=== PATIENT | male | born 1955 | race Caucasian/White ===

== ENCOUNTER 2020-02-16 15:24 | Emergency (ER) | payer OTHER ==
[~2020-02-16] VITALS: Ht 170.2 cm; Wt 56.7 kg
[2020-02-16 16:06] LABS: BASOPHILS ABSOLUTE AUTO 0.06 K/mm3 (0.00-0.23); BASOPHILS PERCENT AUTO 1 % (0-2); EOSINOPHILS ABSOLUTE AUTO 0.46 K/mm3 (0.00-0.68); EOSINOPHILS PERCENT AUTO 7 % (0-6); Hematocrit 37.6 % (37.0-53.0); Hemoglobin 12.3 g/dL (13.5-17.5); IMMATURE GRAN ABSOLUTE AUTO 0.02 K/mm3 (0.00-0.10); IMMATURE GRAN PERCENT AUTO 0 % (0-1); LYMPHOCYTES ABSOLUTE AUTO 2.13 K/mm3 (0.84-5.20); LYMPHOCYTES PERCENT AUTO 30 % (21-46); MONOCYTES ABSOLUTE AUTO 0.69 K/mm3 (0.16-1.47); MONOCYTES PERCENT AUTO 10 % (4-13); Mean Corpuscular HGB 32.9 pg (26.0-34.0); Mean Corpuscular HGB Conc 32.7 g/dL (31.5-36.5); Mean Corpuscular Volume 101 fL (80-100); Mean Platelet Volume 10.8 fL (9.1-12.4); NEUTROPHILS ABSOLUTE AUTO 3.73 K/mm3 (1.96-9.15); NEUTROPHILS PERCENT AUTO 53 % (41-73); Platelet Count 245 K/mm3 (150-400); RDW Coefficient Variation 13.1 % (11.7-14.2); RDW Standard Deviation 48.4 fL (35.1-46.3); Red Blood Cell Count 3.74 M/mm3 (4.30-5.90); White Blood Cell Count 7.09 K/mm3 (4.00-11.30)
[2020-02-16 16:28] LABS: Alanine Aminotransfer (ALT/SGP 22 U/L (12-78); Albumin, Blood 3.4 g/dL (3.4-5.0); Alk Phos 112 U/L (50-136); Anion Gap 6 mmol/L (6-16); Aspartate Aminotrans (AST/SGOT 27 U/L (12-37); Bilirubin, Total 0.4 mg/dL (0.1-1.0); Blood Urea Nitrogen 8 mg/dL (8-24); Bun/Creatinine Ratio 7.4 (12.0-20.0); CO2, Blood 27 mmol/L (21-32); Calcium, Blood 8.9 mg/dL (8.5-10.1); Chloride, Blood 106 mmol/L (98-108); Creatinine, Blood 1.08 mg/dL (0.60-1.20); Globulin, Blood 3.5 g/dL (2.2-4.0); Glomerular Filtration Rate >60 (60-); Glucose, Blood 93 mg/dL (70-99); Potassium, Blood 3.9 mmol/L (3.5-5.5); Sodium, Blood 139 mmol/L (136-145); Total Protein, Blood 6.9 g/dL (6.4-8.2); Troponin I <0.015 ng/mL (0.000-0.040)
[2020-02-16] MEDS ORDERED: DELTASONE20 MG PO (18:32)
[2020-02-16] MEDS ORDERED: ATOR10 PO (18:46)
[2020-02-16] MEDS ORDERED: ALLO100 PO (18:46)
[2020-02-16] MEDS ORDERED: ALBU90OI61 PO (18:46)
[2020-02-16] MEDS ORDERED: Aspir 8181 MG PO (18:46)
[2020-02-16] MEDS ORDERED: BUDESONIDE-FO10.2 G2 PO (18:47)
[2020-02-16] MEDS ORDERED: GABA300 PO (18:47)
[2020-02-16] MEDS ORDERED: METO25 PO (18:48)
[2020-02-16] MEDS ORDERED: LOPE2C PO (18:48)
[2020-02-16] MEDS ORDERED: MELO7.5 PO (18:48)
[2020-02-16] MEDS ORDERED: ROXICODONE15 MG PO (18:50)
[2020-02-16] MEDS ORDERED: TAMS.4ER PO (18:52)
[2020-02-16] MEDS ORDERED: Imitrex50 MG PO (18:52)
[2020-02-16] MEDS ORDERED: TIZA4 PO (18:53)
[2020-02-16] MEDS ORDERED: TRAZ100 PO ×2 (18:54)
[2020-02-27] MEDS ORDERED: GABA100 PO (13:09)
[2020-02-27] MEDS ORDERED: OXYC5 PO (13:10)
[2020-02-27] MEDS ORDERED: ALBU90OI INH (13:11)
[2020-02-27] MEDS ORDERED: Methocarbamol500 MG PO (13:12)
[2020-02-27] MEDS ORDERED: ASPERCREME1 EACH TOP (13:13)
== END 2020-02-16 18:45 | disposition home or self-care (01) ==
LOC: ER 15:24
PROVIDERS: Physician Assistant
DX: J43.9 Emphysema, unspecified (principal)
CPT/HCPCS: 36415; 71045; 80053; 83880; 84484; 85025; 93005; 93010; 94640; 99285-25; J7512

== ENCOUNTER 2020-12-09 04:08 | Emergency (ER) | payer OTHER ==
[~2020-12-09] VITALS: Ht 170.2 cm; Wt 52.2 kg
[~2020-12-09 04:08] MED LIST: ALBU90OI INH; ALBU90OI61 PO; ALLO100 PO; ASPERCREME1 EACH TOP; ATOR10 PO; Aspir 8181 MG PO; BUDESONIDE-FO10.2 G2 PO; DELTASONE20 MG PO; GABA100 PO; GABA300 PO; Imitrex50 MG PO; LOPE2C PO; MELO7.5 PO; METO25 PO; Methocarbamol500 MG PO; OXYC5 PO; ROXICODONE15 MG PO; TAMS.4ER PO; TIZA4 PO; TRAZ100 PO
[2020-12-09] MEDS ORDERED: CYCLOBENZAPRINE5 MG PO (04:46)
[2020-12-09] MEDS ORDERED: DOXE10 PO (04:46)
[2020-12-09] MEDS ORDERED: FLUO10 PO (04:47)
[2020-12-09] MEDS ORDERED: ONE-A-DAY VIT200 MC1 PO (04:47)
[2020-12-09 05:36] LABS: BASOPHILS ABSOLUTE AUTO 0.04 K/mm3 (0.00-0.23); BASOPHILS PERCENT AUTO 0 % (0-2); EOSINOPHILS ABSOLUTE AUTO 0.07 K/mm3 (0.00-0.68); EOSINOPHILS PERCENT AUTO 1 % (0-6); Hemoglobin 13.3 g/dL (13.5-17.5); IMMATURE GRAN ABSOLUTE AUTO 0.05 K/mm3 (0.00-0.10); IMMATURE GRAN PERCENT AUTO 0 % (0-1); LYMPHOCYTES ABSOLUTE AUTO 0.63 K/mm3 (0.84-5.20); LYMPHOCYTES PERCENT AUTO 6 % (21-46); MONOCYTES ABSOLUTE AUTO 0.68 K/mm3 (0.16-1.47); MONOCYTES PERCENT AUTO 6 % (4-13); Mean Corpuscular HGB 34.1 pg (26.0-34.0); Mean Corpuscular HGB Conc 34.1 g/dL (31.5-36.5); Mean Corpuscular Volume 100 fL (80-100); Mean Platelet Volume 10.9 fL (9.1-12.4); NEUTROPHILS ABSOLUTE AUTO 9.85 K/mm3 (1.96-9.15); NEUTROPHILS PERCENT AUTO 87 % (41-73); Platelet Count 241 K/mm3 (150-400); RDW Coefficient Variation 13.7 % (11.7-14.2); RDW Standard Deviation 49.7 fL (35.1-46.3); White Blood Cell Count 11.32 K/mm3 (4.00-11.30)
[2020-12-09 05:59] LABS: Troponin I <0.015 ng/mL (0.000-0.040)
[2020-12-09 06:01] LABS: Anion Gap 6 mmol/L (6-16); Blood Urea Nitrogen 9 mg/dL (8-24); CO2, Blood 28 mmol/L (21-32); Chloride, Blood 99 mmol/L (98-108); Glucose, Blood 129 mg/dL (70-99); Potassium, Blood 4.8 mmol/L (3.5-5.5); Sodium, Blood 133 mmol/L (136-145)
[2020-12-09 06:02] LABS: Alanine Aminotransfer (ALT/SGP 270 U/L (12-78); Albumin, Blood 2.9 g/dL (3.4-5.0); Albumin/Globulin Ratio 0.8 (0.8-1.8); Alk Phos 1836 U/L (50-136); Aspartate Aminotrans (AST/SGOT 682 U/L (12-37); Bilirubin, Total 2.3 mg/dL (0.1-1.0); Bun/Creatinine Ratio 8.8 (12.0-20.0); Calcium, Blood 8.7 mg/dL (8.5-10.1); Creatinine, Blood 1.02 mg/dL (0.60-1.20); Globulin, Blood 3.8 g/dL (2.2-4.0); Glomerular Filtration Rate >60 (60-); Total Protein, Blood 6.7 g/dL (6.4-8.2)
[2020-12-09] MEDS ORDERED: TRAM50 PO (11:54)
[2020-12-09 15:56] LABS: SARS-Cov-2 (COVID-19) PCR, MMC NEGATIVE (NEGATIVE)
== END 2020-12-09 16:36 | disposition short-term general hospital (02) ==
LOC: ER 04:08 → SURS 12:19 → ER 12:19
PROVIDERS: Emergency Medicine; Student in an Organized Health Care Education/Training Program
DX: K81.0 Acute cholecystitis (principal); J44.9 Chronic obstructive pulmonary disease, unspecified; E78.5 Hyperlipidemia, unspecified; I10 Essential (primary) hypertension; Z88.8 Allergy status to other drugs, medicaments and biological substances; Z79.82 Long term (current) use of aspirin; Z79.899 Other long term (current) drug therapy; Z20.822 Contact with and (suspected) exposure to COVID-19
CPT/HCPCS: 36415; 74181; 76705; 80053; 83690; 84484; 85025; 93005; 93010; 96365; 96366; 96375; 99285-25; A9270; J2270; J2405; J2543; J7030; U0004

== ENCOUNTER 2021-01-03 16:57 | Observation (INO) | payer OTHER ==
[~2021-01-03] VITALS: Ht 170.2 cm; Wt 50.1 kg
[~2021-01-03 16:57] MED LIST changes: +CYCLOBENZAPRINE5 MG PO; +DOXE10 PO; +FLUO10 PO; +ONE-A-DAY VIT200 MC1 PO; +TRAM50 PO
[2021-01-03 17:35] LABS: BASOPHILS ABSOLUTE AUTO 0.06 K/mm3 (0.00-0.23); BASOPHILS PERCENT AUTO 1 % (0-2); EOSINOPHILS ABSOLUTE AUTO 0.44 K/mm3 (0.00-0.68); EOSINOPHILS PERCENT AUTO 6 % (0-6); Hematocrit 33.3 % (37.0-53.0); IMMATURE GRAN ABSOLUTE AUTO 0.01 K/mm3 (0.00-0.10); IMMATURE GRAN PERCENT AUTO 0 % (0-1); LYMPHOCYTES ABSOLUTE AUTO 3.08 K/mm3 (0.84-5.20); LYMPHOCYTES PERCENT AUTO 45 % (21-46); MONOCYTES PERCENT AUTO 9 % (4-13); Mean Corpuscular HGB 33.1 pg (26.0-34.0); Mean Corpuscular Volume 100 fL (80-100); Mean Platelet Volume 11.2 fL (9.1-12.4); NEUTROPHILS PERCENT AUTO 39 % (41-73); Platelet Count 205 K/mm3 (150-400); RDW Coefficient Variation 13.1 % (11.7-14.2); Red Blood Cell Count 3.32 M/mm3 (4.30-5.90); White Blood Cell Count 6.89 K/mm3 (4.00-11.30)
[2021-01-03] MEDS ORDERED: TAMSULOSIN HCL0.4 M1 PO (17:54)
[2021-01-03 17:55] LABS: Albumin, Blood 2.7 g/dL (3.4-5.0); Albumin/Globulin Ratio 0.8 (0.8-1.8); Bilirubin, Total 0.4 mg/dL (0.1-1.0); Bun/Creatinine Ratio 11.3 (12.0-20.0); Calcium, Blood 8.2 mg/dL (8.5-10.1); Creatinine, Blood 1.33 mg/dL (0.60-1.20); Globulin, Blood 3.5 g/dL (2.2-4.0); Potassium, Blood 4.3 mmol/L (3.5-5.5); Total Protein, Blood 6.2 g/dL (6.4-8.2)
[2021-01-03] MEDS ORDERED: FOLI1 PO (17:55)
[2021-01-03] MEDS ORDERED: OXYC5 PO (17:55)
[2021-01-03 18:01] LABS: Magnesium, Blood 2.1 mg/dL (1.6-2.4); Troponin I <0.015 ng/mL (0.000-0.040)
[2021-01-03 18:06] LABS: Base Excess Venous -1.7 mmol/L; Bicarbonate Venous 23.1 mmol/L (24.0-30.0); PCO2 Venous 40.6 mmHg (38-42); PO2 Venous 154 mmHg (38-42); pH Blood Venous 7.37 (7.34-7.37)
[2021-01-03 20:59] LABS: Source, Urine Catheter
[2021-01-03 21:01] LABS: Bilirubin, Urine Neg (Neg); Blood, Urine Neg (Neg); Glucose Qualitative, Urine Neg (Neg); Ketones, Urine Neg (Neg); Leukocyte Esterase, Urine Neg (Neg); Nitrite, Urine Neg (Neg); Protein, Urine Neg (Neg); Urobilinogen, Urine NORM (Normal)
[2021-01-03 21:09] LABS: Appearance, Urine Clear (Clear); Color, Urine Yellow (P-Yellow)
[2021-01-03 21:12] LABS: U Amphetamine Screen Not Detected; U Barbituate Screen Not Detected; U Methamphetamine Screen Not Detected; U Oxycodone Screen DETECTED
[2021-01-03 21:13] LABS: U Benzodiazapine Screen Not Detected; U Buprenorphine Screen Not Detected; U Cannabinoids Screen Not Detected; U Cocaine Screen Not Detected; U Methadone Screen Not Detected; U Opiates Screen Not Detected; U Phencyclidine Screen Not Detected; U Propoxyphene Screen Not Detected
[2021-01-03] MEDS ORDERED: SUMA25 PO (21:47)
--- NOTE | 2021-01-03 21:50 | NUR ---
ADMISSION PT ADMITTED TO THE FLOOR FROM THE ER. HE IS AWAKE ALERT & ORIENTED X2-3. PT IS CALM & COOPERATIVE AT THIS TIME. HE STATES UNDERSTANDING FOR ADMISSION & SAFETY. LR STARTED PER EMAR @ 100 ML/HR, LACTULOSE & LOVENOX INJECTION GIVEN, NICOTINE PATCH PLACED. PT REFUSED HIS FLOMAX, HE STATES HE HAS NO PROBLEMS WITH URINATION OR HIS PROSTATE. CHARGE NURSE NOTIFIED. PT ORIENTED TO ROOM/CALL LIGHT. BED ALARM PLACED FOR SAFETY.
--- NOTE | 2021-01-04 03:48 | NUR ---
SHIFT SUMMARY PT CONTINUES TO BE ALERT, CALM & COOPERATIVE. BED ALARM REMAINS IN PLACE FOR SAFETY. PT HAS USED CALL LIGHT FOR ASSISTANCE PRN THROUGH THE NIGHT. PT HAS BEEN INCONTINENT OF URINE & REFUSES TO WEAR ATTENDS FOR PROTECTION. HE HAS HAD MULTIPLE STOOLS. LR INFUSING @ 100 ML/HR PER ORDERED. PT C/O CHRONIC BACK PAIN BUT HAS APPEARED TO REST WELL IN BETWEEN BATHROOM USES. VSS, SPO2 >95% ON RA. WCTM AT THIS & REPORT TO DAY SHIFT RN.
[2021-01-04 04:23] LABS: BASOPHILS ABSOLUTE AUTO 0.06 K/mm3 (0.00-0.23); BASOPHILS PERCENT AUTO 1 % (0-2); EOSINOPHILS ABSOLUTE AUTO 0.26 K/mm3 (0.00-0.68); EOSINOPHILS PERCENT AUTO 4 % (0-6); Hematocrit 33.2 % (37.0-53.0); IMMATURE GRAN ABSOLUTE AUTO 0.02 K/mm3 (0.00-0.10); IMMATURE GRAN PERCENT AUTO 0 % (0-1); LYMPHOCYTES ABSOLUTE AUTO 1.25 K/mm3 (0.84-5.20); LYMPHOCYTES PERCENT AUTO 20 % (21-46); MONOCYTES ABSOLUTE AUTO 0.45 K/mm3 (0.16-1.47); MONOCYTES PERCENT AUTO 7 % (4-13); Mean Corpuscular HGB 33.3 pg (26.0-34.0); Mean Corpuscular HGB Conc 33.1 g/dL (31.5-36.5); Mean Corpuscular Volume 101 fL (80-100); NEUTROPHILS ABSOLUTE AUTO 4.12 K/mm3 (1.96-9.15); NEUTROPHILS PERCENT AUTO 67 % (41-73); Platelet Count 176 K/mm3 (150-400); RDW Coefficient Variation 13.1 % (11.7-14.2); RDW Standard Deviation 48.3 fL (35.1-46.3); White Blood Cell Count 6.16 K/mm3 (4.00-11.30)
[2021-01-04 04:43] LABS: Alanine Aminotransfer (ALT/SGP 188 U/L (12-78); Albumin, Blood 2.3 g/dL (3.4-5.0); Albumin/Globulin Ratio 0.8 (0.8-1.8); Alk Phos 198 U/L (50-136); Anion Gap 4 mmol/L (6-16); Aspartate Aminotrans (AST/SGOT 768 U/L (12-37); Bilirubin, Total 0.6 mg/dL (0.1-1.0); Blood Urea Nitrogen 13 mg/dL (8-24); Bun/Creatinine Ratio 11.8 (12.0-20.0); CO2, Blood 25 mmol/L (21-32); Calcium, Blood 7.7 mg/dL (8.5-10.1); Chloride, Blood 117 mmol/L (98-108); Glomerular Filtration Rate >60 (60-); Glucose, Blood 68 mg/dL (70-99); Potassium, Blood 4.6 mmol/L (3.5-5.5); Sodium, Blood 146 mmol/L (136-145); Total Protein, Blood 5.3 g/dL (6.4-8.2)
[2021-01-04 08:16] LABS: International Normalized Ratio 1.01; Prothrombin Time Results 10.9 Sec (9.7-11.5)
--- NOTE | 2021-01-05 05:27 | NUR ---
DOCTOR CALL THIS RN CALLS DR REYNA REGARDING POSSIBLE NEED FOR REPEAT LABS TO ASSESS PT'S LIVER FUNCTION. ORDER TO BE PLACED BY DR REYNA.
[2021-01-05 06:29] LABS: Alanine Aminotransfer (ALT/SGP 448 U/L (12-78); Albumin, Blood 2.3 g/dL (3.4-5.0); Albumin/Globulin Ratio 0.8 (0.8-1.8); Alk Phos 209 U/L (50-136); Anion Gap 7 mmol/L (6-16); Aspartate Aminotrans (AST/SGOT 855 U/L (12-37); Bilirubin, Total 0.6 mg/dL (0.1-1.0); Blood Urea Nitrogen 5 mg/dL (8-24); Bun/Creatinine Ratio 5.5 (12.0-20.0); CO2, Blood 25 mmol/L (21-32); Calcium, Blood 8.3 mg/dL (8.5-10.1); Chloride, Blood 112 mmol/L (98-108); Creatinine, Blood 0.92 mg/dL (0.60-1.20); Globulin, Blood 2.9 g/dL (2.2-4.0); Glomerular Filtration Rate >60 (60-); Glucose, Blood 94 mg/dL (70-99); Potassium, Blood 3.6 mmol/L (3.5-5.5); Sodium, Blood 144 mmol/L (136-145); Total Protein, Blood 5.2 g/dL (6.4-8.2)
--- NOTE | 2021-01-05 07:27 | NUR ---
SHIFT SUMMARY PT AOX4 T/O SHIFT. SOME DYSPNEA WITH EXERTION. SATS >93% ON RA. UP TO BATHROOM SEVERAL TIMES WITH LOOSE STOOL. C/O CHRONIC LOW BACK PAIN. MEDICATED WITH ORDERED FLEXERIL WITH SOME RELIEF. PT C/O HEADACHE JUST PRIOR TO SHIFT CHANGE THIS AM. ONCOMING RN NOTIFIED. LR INFUSING PER ORDER.
--- NOTE | 2021-01-05 18:45 | NUR ---
SHIFT SUMMARY PT ALERT AND ORIENTED X 4. HR STABLE. BP STABLE. NO CP OR PRESSURE. OXYGEN SATURATION MAINTAINED ABOVE 92% ON RA. PT SBA TO BATHROOM. MULIPLE EPISODES OF DIARREHA D/T LACTULOSE. BED ALARM IN PLACE. AT BEDSIDE THIS EVENING WITH PT. WILL CONT TO MONITOR UNTIL REPORT GIVEN TO NIGHTSHIFT RN.
[2021-01-06 04:21] LABS: Alanine Aminotransfer (ALT/SGP 343 U/L (12-78); Albumin, Blood 2.7 g/dL (3.4-5.0); Albumin/Globulin Ratio 0.8 (0.8-1.8); Alk Phos 240 U/L (50-136); Anion Gap 4 mmol/L (6-16); Aspartate Aminotrans (AST/SGOT 376 U/L (12-37); Bilirubin, Total 0.7 mg/dL (0.1-1.0); Blood Urea Nitrogen 4 mg/dL (8-24); CO2, Blood 28 mmol/L (21-32); Calcium, Blood 8.5 mg/dL (8.5-10.1); Chloride, Blood 110 mmol/L (98-108); Globulin, Blood 3.4 g/dL (2.2-4.0); Glomerular Filtration Rate >60 (60-); Glucose, Blood 101 mg/dL (70-99); Potassium, Blood 3.6 mmol/L (3.5-5.5); Sodium, Blood 142 mmol/L (136-145); Total Protein, Blood 6.1 g/dL (6.4-8.2)
--- NOTE | 2021-01-06 06:31 | NUR ---
SHIFT SUMMARY PATIENT ALERT AND ORIENTED X4. SBA TO THE BATHROOM. MEDICATED FOR CHRONIC BACK PAIN PER EMAR. 02 SATS 99% ON RA. VSS, NO ACUTE CHANGES. PATIENT SLEPT MOST THE NIGHT. BED ALARM ON. CALL LIGHT IN REACH.
[2021-01-06 09:10] LABS: HBSAG SCREEN Negative (Negative); HEP A AB, IGM Negative (Negative); HEP B CORE AB, IGM Negative (Negative); HEP C VIRUS AB <0.1 (0.0-0.9)
[2021-01-06] MEDS ORDERED: B-1100 M1 PO (11:41)
--- NOTE | 2021-01-06 13:07 | NUR ---
PT DISHCARGE PT'S MEDICATIONS FAXED TO PREFERRED PHARMACY. PT PROVIDED WITH DISCHARGE INSTRUCTIONS. IV REMOVED. TELE REMOVED. PT BROUGHT BY WHEELCHAIR TO FRONT OF HOSPTIAL BY WHEELCHAIR BY WELDING ENGINEER WITH BELONGINGS TO WAIT FOR . SEAM PRESS OPERATOR APPROVED.
== END 2021-01-06 12:40 | disposition home or self-care (01) ==
LOC: ER 16:57 → PCU 16:58
PROVIDERS: Family Medicine; Internal Medicine; Physician Assistant; ADMIT Family Medicine
DX: F10.229 Alcohol dependence with intoxication, unspecified (principal); F33.9 Major depressive disorder, recurrent, unspecified; I95.9 Hypotension, unspecified; I10 Essential (primary) hypertension; J43.9 Emphysema, unspecified; E78.5 Hyperlipidemia, unspecified; M10.9 Gout, unspecified; E87.2 Acidosis; N17.9 Acute kidney failure, unspecified; D64.9 Anemia, unspecified; F17.210 Nicotine dependence, cigarettes, uncomplicated; R41.82 Altered mental status, unspecified; N40.0 Benign prostatic hyperplasia without lower urinary tract symptoms; Z88.5 Allergy status to narcotic agent; Z88.8 Allergy status to other drugs, medicaments and biological substances; Z66 Do not resuscitate; Y90.9 Presence of alcohol in blood, level not specified; Z86.79 Personal history of other diseases of the circulatory system; Z90.49 Acquired absence of other specified parts of digestive tract; Y90.8 Blood alcohol level of 240 mg/100 ml or more
CPT/HCPCS: 36415; 71045; 76700; 80053; 80074; 81003; 82140; 82803; 82947; 83605; 83735; 84484; 85025; 85610; 93005; 93010; 94760; 96361; 96372; 96374; 99285-25; A9270; G0378; G0480; J1200; J1630; J1650; J7030; J7120

== ENCOUNTER → 2021-01-20 | Outpatient (CLI) | payer OTHER ==
[~2021-01-20] MED LIST changes: +B-1100 M1 PO; +FOLI1 PO; +SUMA25 PO; +TAMSULOSIN HCL0.4 M1 PO
[2021-01-20 20:02] LABS: Albumin/Globulin Ratio 0.8 (0.8-1.8); Bilirubin, Total 0.3 mg/dL (0.1-1.0); Calcium, Blood 8.7 mg/dL (8.5-10.1); Creatinine, Blood 1.33 mg/dL (0.60-1.20); Globulin, Blood 3.7 g/dL (2.2-4.0); Potassium, Blood 3.6 mmol/L (3.5-5.5); Total Protein, Blood 6.7 g/dL (6.4-8.2)
== END | disposition home or self-care (01) ==
LOC: LAB 16:06 → LAB SHORT 16:06
PROVIDERS: Physician Assistant
DX: K72.90 Hepatic failure, unspecified without coma (principal)
CPT/HCPCS: 80053

== ENCOUNTER → 2021-02-14 | Outpatient (CLI) | payer OTHER ==
[2021-02-14 19:42] LABS: BASOPHILS ABSOLUTE AUTO 0.07 K/mm3 (0.00-0.23); BASOPHILS PERCENT AUTO 1 % (0-2); EOSINOPHILS ABSOLUTE AUTO 0.52 K/mm3 (0.00-0.68); EOSINOPHILS PERCENT AUTO 7 % (0-6); Hematocrit 37.9 % (37.0-53.0); Hemoglobin 12.5 g/dL (13.5-17.5); IMMATURE GRAN ABSOLUTE AUTO 0.02 K/mm3 (0.00-0.10); IMMATURE GRAN PERCENT AUTO 0 % (0-1); LYMPHOCYTES ABSOLUTE AUTO 2.12 K/mm3 (0.84-5.20); LYMPHOCYTES PERCENT AUTO 29 % (21-46); MONOCYTES ABSOLUTE AUTO 0.87 K/mm3 (0.16-1.47); MONOCYTES PERCENT AUTO 12 % (4-13); Mean Corpuscular HGB 32.7 pg (26.0-34.0); Mean Corpuscular Volume 99 fL (80-100); Mean Platelet Volume 10.9 fL (9.1-12.4); NEUTROPHILS ABSOLUTE AUTO 3.77 K/mm3 (1.96-9.15); NEUTROPHILS PERCENT AUTO 51 % (41-73); Platelet Count 229 K/mm3 (150-400); RDW Coefficient Variation 12.7 % (11.7-14.2); RDW Standard Deviation 46.5 fL (35.1-46.3); Red Blood Cell Count 3.82 M/mm3 (4.30-5.90); White Blood Cell Count 7.37 K/mm3 (4.00-11.30)
[2021-02-14 20:17] LABS: Alanine Aminotransfer (ALT/SGP 21 U/L (12-78); Albumin, Blood 2.7 g/dL (3.4-5.0); Albumin/Globulin Ratio 0.7 (0.8-1.8); Alk Phos 119 U/L (50-136); Anion Gap 3 mmol/L (6-16); Aspartate Aminotrans (AST/SGOT 23 U/L (12-37); Bilirubin, Total 0.3 mg/dL (0.1-1.0); Blood Urea Nitrogen 8 mg/dL (8-24); Bun/Creatinine Ratio 7.9 (12.0-20.0); CO2, Blood 30 mmol/L (21-32); Calcium, Blood 8.7 mg/dL (8.5-10.1); Chloride, Blood 104 mmol/L (98-108); Creatinine, Blood 1.01 mg/dL (0.60-1.20); Globulin, Blood 3.8 g/dL (2.2-4.0); Glomerular Filtration Rate >60 (60-); Glucose, Blood 80 mg/dL (70-99); Potassium, Blood 3.9 mmol/L (3.5-5.5); Sodium, Blood 137 mmol/L (136-145); Total Protein, Blood 6.5 g/dL (6.4-8.2)
== END | disposition home or self-care (01) ==
LOC: LAB SHORT 14:45
PROVIDERS: Physician Assistant
DX: I10 Essential (primary) hypertension (principal)
CPT/HCPCS: 80053; 85025

== ENCOUNTER → 2022-05-01 | Outpatient (CLI) | payer OTHER | END | disposition home or self-care (01) | LOC: LAB 17:47 → LAB SHORT 17:47 | DX: L08.9 Local infection of the skin and subcutaneous tissue, unspecified (principal) | CPT/HCPCS: 87070; 87077; 87147; 87186; 87205 ==

== ENCOUNTER → 2022-11-24 | Outpatient (CLI) | payer OTHER ==
[2022-11-24 15:47] LABS: BASOPHILS ABSOLUTE AUTO 0.08 K/mm3 (0.00-0.23); BASOPHILS PERCENT AUTO 2 % (0-2); EOSINOPHILS ABSOLUTE AUTO 0.19 K/mm3 (0.00-0.68); EOSINOPHILS PERCENT AUTO 4 % (0-6); Hematocrit 34.8 % (37.0-53.0); Hemoglobin 11.3 g/dL (13.5-17.5); IMMATURE GRAN ABSOLUTE AUTO 0.01 K/mm3 (0.00-0.10); IMMATURE GRAN PERCENT AUTO 0 % (0-1); LYMPHOCYTES ABSOLUTE AUTO 1.31 K/mm3 (0.84-5.20); LYMPHOCYTES PERCENT AUTO 24 % (21-46); MONOCYTES ABSOLUTE AUTO 0.45 K/mm3 (0.16-1.47); MONOCYTES PERCENT AUTO 8 % (4-13); Mean Corpuscular HGB 29.9 pg (26.0-34.0); Mean Corpuscular HGB Conc 32.5 g/dL (31.5-36.5); Mean Corpuscular Volume 92 fL (80-100); Mean Platelet Volume 10.8 fL (9.1-12.4); NEUTROPHILS ABSOLUTE AUTO 3.46 K/mm3 (1.96-9.15); NEUTROPHILS PERCENT AUTO 63 % (41-73); Platelet Count 231 K/mm3 (150-400); RDW Coefficient Variation 13.5 % (11.7-14.2); RDW Standard Deviation 45.7 fL (35.1-46.3); Red Blood Cell Count 3.78 M/mm3 (4.30-5.90)
[2022-11-24 16:14] LABS: Alanine Aminotransfer (ALT/SGP 15 U/L (12-78); Albumin, Blood 3.2 g/dL (3.4-5.0); Albumin/Globulin Ratio 1.1 (0.8-1.8); Alk Phos 85 U/L (50-136); Anion Gap 2 mmol/L (6-16); Aspartate Aminotrans (AST/SGOT 18 U/L (12-37); Bilirubin, Total 0.5 mg/dL (0.1-1.0); Blood Urea Nitrogen 11 mg/dL (8-24); Bun/Creatinine Ratio 8.1 (12.0-20.0); CHOL/HDL RATIO 3.4; CO2, Blood 31 mmol/L (21-32); Calcium, Blood 8.2 mg/dL (8.5-10.1); Chloride, Blood 104 mmol/L (98-108); Cholesterol 160 mg/dL (50-200); Creatinine, Blood 1.36 mg/dL (0.60-1.20); Globulin, Blood 2.8 g/dL (2.2-4.0); Glomerular Filtration Rate 57 (60-); Glucose, Blood 93 mg/dL (70-99); HDL Cholesterol 47 mg/dL (>39); LDL/HDL RATIO 1.9; Low Density Lipoprotein Chol 90 mg/dL (0-110); Sodium, Blood 137 mmol/L (136-145); Thyroxine (T4) 5.4 ug/dL (4.5-12.1); Triglycerides 116 mg/dL (30-160); Very Low Density Lipoprot Chol 23 mg/dL (6-32)
[2022-11-27 16:03] LABS: PSA, %Free 26.8 %; PSA, Free 0.097 ng/mL; Prostate Specific Antigen 0.362 ng/mL (0.000-4.000)
== END | disposition home or self-care (01) ==
LOC: LAB SHORT 13:55 → LAB 13:55
PROVIDERS: Family Medicine
DX: N40.0 Benign prostatic hyperplasia without lower urinary tract symptoms (principal); G47.00 Insomnia, unspecified; I10 Essential (primary) hypertension
CPT/HCPCS: 80053; 80061; 84153; 84154; 84436; 84443; 85025

== ENCOUNTER 2023-01-29 11:28 | Inpatient (IN) | payer OTHER ==
[~2023-01-29] VITALS: Ht 167.6 cm; Wt 54.4 kg
[2023-01-29] MEDS ORDERED: Lisinopril2.5 MG PO (11:49)
[2023-01-29] MEDS ORDERED: CETI5 PO (11:49)
[2023-01-29] MEDS ORDERED: BUSP5 PO (11:49)
[2023-01-29] MEDS ORDERED: ROSU5 PO (11:49)
[2023-01-29 16:04] LABS: Bun/Creatinine Ratio 9.4 (12.0-20.0); Creatinine, Blood 1.71 mg/dL (0.60-1.20); Potassium, Blood 3.1 mmol/L (3.5-5.5)
[2023-01-29 16:09] LABS: BASOPHILS ABSOLUTE AUTO 0.06 K/mm3 (0.00-0.23); BASOPHILS PERCENT AUTO 1 % (0-2); EOSINOPHILS ABSOLUTE AUTO 0.08 K/mm3 (0.00-0.68); EOSINOPHILS PERCENT AUTO 1 % (0-6); Hematocrit 30.5 % (37.0-53.0); Hemoglobin 10.3 g/dL (13.5-17.5); IMMATURE GRAN ABSOLUTE AUTO 0.03 K/mm3 (0.00-0.10); IMMATURE GRAN PERCENT AUTO 0 % (0-1); LYMPHOCYTES ABSOLUTE AUTO 1.47 K/mm3 (0.84-5.20); LYMPHOCYTES PERCENT AUTO 16 % (21-46); MONOCYTES ABSOLUTE AUTO 0.77 K/mm3 (0.16-1.47); MONOCYTES PERCENT AUTO 8 % (4-13); Mean Corpuscular HGB 30.4 pg (26.0-34.0); Mean Corpuscular HGB Conc 33.8 g/dL (31.5-36.5); Mean Corpuscular Volume 90 fL (80-100); Mean Platelet Volume 11.2 fL (9.1-12.4); NEUTROPHILS ABSOLUTE AUTO 7.02 K/mm3 (1.96-9.15); NEUTROPHILS PERCENT AUTO 75 % (41-73); Platelet Count 174 K/mm3 (150-400); RDW Coefficient Variation 14.4 % (11.7-14.2); RDW Standard Deviation 46.7 fL (35.1-46.3); Red Blood Cell Count 3.39 M/mm3 (4.30-5.90); White Blood Cell Count 9.43 K/mm3 (4.00-11.30)
[2023-01-29] MEDS ORDERED: BENADRYL25 MG PO (16:25)
[2023-01-29] MEDS ORDERED: IBUP200 PO (16:26)
[2023-01-29] MEDS ORDERED: MELO7.5 PO (16:27)
[2023-01-29] MEDS ORDERED: TOPROL XL25 MG PO (16:28)
[2023-01-29] MEDS ORDERED: TRAZ150T57 PO (16:32)
[2023-01-29 18:20] VITALS: BP 129/51
[2023-01-29 19:11] VITALS: BP 118/71
--- NOTE | 2023-01-29 19:48 | NUR ---
ORTHOPEDIC DR. TEAGUE TO PTS ROOM TO SPEAK ABOUT SURGERY, PLANNED FOR PNNING TOMORROW WITH SHELLEY
[2023-01-30] VITALS (16 sets, daily range): BP systolic 93–135; BP diastolic 54–78
[2023-01-30 05:38] LABS: BASOPHILS ABSOLUTE AUTO 0.05 K/mm3 (0.00-0.23); BASOPHILS PERCENT AUTO 1 % (0-2); EOSINOPHILS ABSOLUTE AUTO 0.34 K/mm3 (0.00-0.68); EOSINOPHILS PERCENT AUTO 5 % (0-6); Hematocrit 32.5 % (37.0-53.0); Hemoglobin 10.9 g/dL (13.5-17.5); IMMATURE GRAN ABSOLUTE AUTO 0.02 K/mm3 (0.00-0.10); IMMATURE GRAN PERCENT AUTO 0 % (0-1); LYMPHOCYTES ABSOLUTE AUTO 1.62 K/mm3 (0.84-5.20); LYMPHOCYTES PERCENT AUTO 25 % (21-46); MONOCYTES ABSOLUTE AUTO 0.55 K/mm3 (0.16-1.47); MONOCYTES PERCENT AUTO 8 % (4-13); Mean Corpuscular HGB 30.2 pg (26.0-34.0); Mean Corpuscular HGB Conc 33.5 g/dL (31.5-36.5); Mean Corpuscular Volume 90 fL (80-100); Mean Platelet Volume 10.5 fL (9.1-12.4); NEUTROPHILS ABSOLUTE AUTO 3.97 K/mm3 (1.96-9.15); NEUTROPHILS PERCENT AUTO 61 % (41-73); Platelet Count 161 K/mm3 (150-400); RDW Coefficient Variation 14.5 % (11.7-14.2); RDW Standard Deviation 47.3 fL (35.1-46.3); Red Blood Cell Count 3.61 M/mm3 (4.30-5.90); White Blood Cell Count 6.55 K/mm3 (4.00-11.30)
[2023-01-30 05:54] LABS: International Normalized Ratio 1.05
[2023-01-30 05:58] LABS: Bun/Creatinine Ratio 10.3 (12.0-20.0); Calcium, Blood 7.7 mg/dL (8.5-10.1); Creatinine, Blood 1.74 mg/dL (0.60-1.20); Potassium, Blood 2.8 mmol/L (3.5-5.5)
--- NOTE | 2023-01-30 06:10 | NUR ---
SHIFT SUMMARY VSS, PT NOTED TO BE TACHYCARDIC THIS AM AT 109 BPM, PT IN SIGNIFIGANT PAIN AT THIS TIME. PT SLEPT ON AND OFF T/O THE NIGHT. REQUIRED 1 STRAIT CATH, EMPTIED 775 MLS FROM BLADDER. PT REMAINED IN BED T/O THE NIGHT. MEDICATED WITH PRN MEDICATION REGULARLY. MINIMAL RESULTS, PT DENYING WANTING TO USE REPOSITIONING OR ICE THERAPY. SURGICAL WIPEDOWN COMPLETE, NO ACUTE EVENTS T/O THE NIGHT. PLAN FOR HIP PINNING THIS AFTERNOON. THE PATIENT IS RESTING, IN NO DISTRESS, CALL LIGHT IN REACH
--- NOTE | 2023-01-30 11:31 | NUR ---
Pt. is resting in bed but responds when I enter the room. Pt. is pleasant. Facilitate a life review and establish some rapport. Pt. would welcome [facility]. Pt. verbalized gratitude for the spiritual care visit.
[2023-01-30 12:14] LABS: Percent Saturation 15.3 % (20.0-50.0)
--- NOTE | 2023-01-30 12:56 | NUR ---
THE PATIENT WAS BROUGHT TO DAY SURGERY FOR HIS PROCEDURE.
--- NOTE | 2023-01-30 19:40 | NUR ---
SHIFT SUMMARY POD0 L HIP PINNING, A/OX4, VSS, TOLERATING PO, PT ON BEDREST T/O THE SHIFT, PAIN MANAGED PER EMAR. DISCUSSED THE [employer] AIR ACT OF 1980 WHICH BANS SMOKING INDOORS, ALSO DISCUSSED NOT USING ANY IGNITION SOURCES OR FLAMES/FLAMMABLES WHILE IN DOORS WITH OXYGEN IN THE FACILITY DUE TO IT BEING VERY FLAMMABLE. NO ACUTE EVENTS THIS SHIFT, CALL LIGHT IN REACH.
[2023-01-31 00:22] VITALS: BP 117/73
[2023-01-31 04:44] VITALS: BP 148/90
[2023-01-31 04:57] LABS: Hematocrit 26.5 % (37.0-53.0); Hemoglobin 8.7 g/dL (13.5-17.5); Mean Corpuscular HGB 29.9 pg (26.0-34.0); Mean Corpuscular HGB Conc 32.8 g/dL (31.5-36.5); Mean Corpuscular Volume 91 fL (80-100); Platelet Count 159 K/mm3 (150-400); RDW Coefficient Variation 14.5 % (11.7-14.2); RDW Standard Deviation 47.8 fL (35.1-46.3); Red Blood Cell Count 2.91 M/mm3 (4.30-5.90); White Blood Cell Count 6.46 K/mm3 (4.00-11.30)
[2023-01-31 05:32] LABS: BAND PERCENT MAN 1 % (0-8); BASOPHILS PERCENT MAN 0 % (0-2); EOSINOPHILS PERCENT MAN 0 % (0-6); LYMPHOCYTES ABSOLUTE MAN 0.19 K/mm3 (0.84-5.20); LYMPHOCYTES PERCENT MAN 3 % (21-46); MONOCYTES PERCENT MAN 0 % (4-13); NEUTROPHILS ABSOLUTE MAN 6.26 K/mm3 (1.96-9.15); SEG NEUTROPHILS PERCENT MAN 96 % (41-73); TOTAL CELLS COUNTED 100
[2023-01-31 05:34] LABS: Bun/Creatinine Ratio 10.4 (12.0-20.0); Calcium, Blood 7.3 mg/dL (8.5-10.1); Creatinine, Blood 1.34 mg/dL (0.60-1.20); Potassium, Blood 3.8 mmol/L (3.5-5.5)
--- NOTE | 2023-01-31 06:01 | NUR ---
SHIFT SUMMARY PT POD 0 LEFT PINNING. PT HAS BEEN AWAKE MOST OF THE NIGHT, HE REPORTS DIFFICULTY SLEEPING. TRAZADONE GIVEN AT BEDTIME. PT HAS BEEN TEARFUL AND ANXIOUS OFF AND ON THIS SHIFT OVER HIS PERSONAL LIFE, STATING THAT HE GOT INTO AN ARGUMENT WITH HIS BEFORE COMING INTO THE HOSPITAL. DRESSING TO LEFT HIP C/D/I. VITALS ARE STABLE. PT BLADDER SCANNED AFTER MIDNIGHT, 6 HOURS AFTER PREVIOUS BLADDER SCAN. BLADDER SCAN REVEALED OVER 600 MLS IN BLADDER. PT WAS ABLE TO VOID 500 MLS SHORTLY AFTER SCAN, AND HAS SINCE VOIDED AGAIN. PT MEDICATED FOR PAIN X1. IVF INFUSING. TOLERATING PO INTAKE, NO N/V. NO ACUTE CHANGES TO REPORT OVERNIGHT. FIRE RISK ASSESSED THIS SHIFT, PT EDUCATED ON IGNITION RISK AND SOURCES. PT DENIES HAVING IGNITION SOURCES.
[2023-01-31 07:12] VITALS: BP 155/76
--- NOTE | 2023-01-31 13:47 | NUR ---
Pt. is awake in bed and welcomes my visit. Pt. is pleasant. Facilitate a discussion regarding his surgery and anticiplated recovery. Pt. verbalized that when he goes home he will have support. Listen with empathy and a calming presence. Facilitate a broader life review and also consider matters of sumeet and belief. Pt. becomes emotional as he shares the unexpected passing of two of his children. Listen with empathy, and gentle pastoral grief funeral pre arrangement counselor is given. Prayed with Pt. Pt. verbalized gratitude for the spiritual care visit.
[2023-01-31 16:16] VITALS: BP 119/88
--- NOTE | 2023-01-31 17:49 | NUR ---
SHIFT SUMMARY PT A&OX4, VSS/RA, WILLIAM PO, VOIDING/URINAL, PAIN MANAGED, IV RAC SL. POD1 1 L HIP GAMMA NAIL, AQUACEL X2 CDI, WBAT. PHYSICAL THERAPY EVAL'D, UP TO CHAIR WITH BLE ELEVATED. WILL REPORT TO ONCOMING NOC RN.
[2023-01-31 19:11] VITALS: BP 109/65
[2023-02-01 04:15] VITALS: BP 134/76
[2023-02-01 04:30] LABS: BASOPHILS ABSOLUTE AUTO 0.01 K/mm3 (0.00-0.23); BASOPHILS PERCENT AUTO 0 % (0-2); EOSINOPHILS ABSOLUTE AUTO 0.09 K/mm3 (0.00-0.68); EOSINOPHILS PERCENT AUTO 1 % (0-6); Hematocrit 25.1 % (37.0-53.0); Hemoglobin 8.2 g/dL (13.5-17.5); IMMATURE GRAN ABSOLUTE AUTO 0.04 K/mm3 (0.00-0.10); IMMATURE GRAN PERCENT AUTO 1 % (0-1); LYMPHOCYTES ABSOLUTE AUTO 1.32 K/mm3 (0.84-5.20); LYMPHOCYTES PERCENT AUTO 19 % (21-46); MONOCYTES ABSOLUTE AUTO 0.73 K/mm3 (0.16-1.47); MONOCYTES PERCENT AUTO 11 % (4-13); Mean Corpuscular HGB 30.1 pg (26.0-34.0); Mean Corpuscular HGB Conc 32.7 g/dL (31.5-36.5); Mean Corpuscular Volume 92 fL (80-100); Mean Platelet Volume 10.5 fL (9.1-12.4); NEUTROPHILS ABSOLUTE AUTO 4.71 K/mm3 (1.96-9.15); NEUTROPHILS PERCENT AUTO 68 % (41-73); Platelet Count 168 K/mm3 (150-400); RDW Coefficient Variation 14.9 % (11.7-14.2); RDW Standard Deviation 50.1 fL (35.1-46.3); Red Blood Cell Count 2.72 M/mm3 (4.30-5.90)
[2023-02-01 04:57] LABS: Bun/Creatinine Ratio 10.5 (12.0-20.0); Calcium, Blood 7.6 mg/dL (8.5-10.1); Creatinine, Blood 1.33 mg/dL (0.60-1.20); Potassium, Blood 3.3 mmol/L (3.5-5.5)
--- NOTE | 2023-02-01 06:07 | NUR ---
SHIFT SUMMARY PT HAS RESTED OFF AND ON T/O THE NIGHT, HE REPORTS DIFFICULTY SLEEPING. PT MEDICATED WITH TRAZADONE AT BEDTIME, HIS HOME DOSE. HOWEVER PT REPORTS THAT IT HAS BEEN INEFFECTIVE. PT WOULD LIKE TO HAVE A DIFFERENT SLEEP AID ORDERED, WILL RELAY THIS INFORMATION TO DAY RN FOR FURTHER FOLLOW UP. PT CONTINUES TO HAVE PAIN IN LEFT HIP. PT REPORTS THAT 1 NORCO HAS NOT WORKED WELL. PT NOW BEING GIVEN 2 TABS OF NORCO PER ORDERS AND HE REPORTS THAT HIS PAIN IS BETTER CONTROLLED. DRESSING INTACT TO LEFT HIP, PT DENIES N/T. PT UP AND AMBULATING AND IS VOIDING. FIRE RISK ASSESSED THIS SHIFT, PT EDUCATED ON IGNITION RISKS AND SOURCES. PT DENIES HAVING IGNITION SOURCES.
[2023-02-01 07:10] VITALS: BP 131/74
[2023-02-01 14:15] LABS: SARS-Cov-2 (COVID-19) PCR, MMC NEGATIVE (NEGATIVE)
--- NOTE | 2023-02-01 16:04 | NUR ---
TRANSFER SUMMARY PT A&OX4, VSS/RA, WILLIAM PO, VOIDING/URINAL, PAIN MANAGED, IV DC'D, AMB MIN ASSIST WITH FWW/GB, HAS BEEN UP TO CHAIR/WORKING WITH PHYSICAL THERAPY, AMB TO BRP/CHAIR/BED, AQUACEL CDI. PT WAS EDU AND ASSESSED FOR IGNITION DEVICES AND FIRE PREVENTION. REPORT PROVIDED TO YVON AT [facility].
== END 2023-02-01 15:12 | disposition home or self-care (01) | DRG 481 ==
LOC: ER 11:28 → SURS 15:47
PROVIDERS: Family Medicine; Internal Medicine; Orthopaedic Surgery; ADMIT Internal Medicine
PROC: 0QS706Z Reposition Left Upper Femur with Intramedullary Internal Fixation Device, Open Approach (ICD-10-PCS; principal; 2023-01-30 14:00)
DX: S72.145A Nondisplaced intertrochanteric fracture of left femur, initial encounter for closed fracture (principal); E44.0 Moderate protein-calorie malnutrition; F11.20 Opioid dependence, uncomplicated; N17.9 Acute kidney failure, unspecified; Z68.1 Body mass index [BMI] 19.9 or less, adult; W10.9XXA Fall (on) (from) unspecified stairs and steps, initial encounter; N18.31 Chronic kidney disease, stage 3a; I12.9 Hypertensive chronic kidney disease with stage 1 through stage 4 chronic kidney disease, or unspecified chronic kidney disease; M10.9 Gout, unspecified; F10.20 Alcohol dependence, uncomplicated; N40.1 Benign prostatic hyperplasia with lower urinary tract symptoms; R33.8 Other retention of urine; E78.00 Pure hypercholesterolemia, unspecified; G43.909 Migraine, unspecified, not intractable, without status migrainosus; F32.9 Major depressive disorder, single episode, unspecified; G62.9 Polyneuropathy, unspecified; J43.9 Emphysema, unspecified; R00.0 Tachycardia, unspecified; I73.9 Peripheral vascular disease, unspecified; E86.0 Dehydration; D63.8 Anemia in other chronic diseases classified elsewhere; D63.1 Anemia in chronic kidney disease; F41.9 Anxiety disorder, unspecified; F17.210 Nicotine dependence, cigarettes, uncomplicated; M19.09 Primary osteoarthritis, other specified site; S60.212A Contusion of left wrist, initial encounter; Z20.822 Contact with and (suspected) exposure to COVID-19; Z79.51 Long term (current) use of inhaled steroids; Z79.811 Long term (current) use of aromatase inhibitors; Z79.82 Long term (current) use of aspirin; Z88.5 Allergy status to narcotic agent; Z88.8 Allergy status to other drugs, medicaments and biological substances; Z98.1 Arthrodesis status; Z95.820 Peripheral vascular angioplasty status with implants and grafts; Z87.19 Personal history of other diseases of the digestive system
CPT/HCPCS: 36415; 51798; 72192; 73110; 73502; 76377; 76770; 80048; 82728; 83540; 83550; 85025; 85610; 94640; 94664; 94760; 94762; 96374; 97110; 97116; 97162; 97530; 99285-25; A9270; C1713; C1769; J0690; J1100; J1170; J1644; J2371; J2405; J2704; J2795; J2916; J3010; J7030; J7120; U0002